=== PATIENT | female | born 1960 | race Caucasian/White ===

== ENCOUNTER 2016-08-04 14:28 | Emergency (ER) | payer OTHER ==
[~2016-08-04] VITALS: Ht 162.6 cm; Wt 87.5 kg
[~2016-08-04 14:28] MED LIST: ALLEGRA-D 12 HO1 TER PO; CELEBREX200 MG PO; CRESTOR10 MG PO; HYDROXYZINE HYD25 MG PO; LEVOTHYROXINE0.05 MG PO; PANTOPRAZOLE40 M1 PO
[2016-08-04] MEDS ORDERED: SINGULAIR 10 MG10 MG PO (14:54)
[2016-08-04] MEDS ORDERED: AMLO5TAB PO (14:54)
[2016-08-04] MEDS ORDERED: QVAR8.7 G1 IH (14:55)
--- NOTE | 2016-08-04 14:58 | Emergency Room Report ---
History of Present Illness Time Seen by [id number] Presenting Problem in Triage Pt arrived:Walked Presenting Problem:PT HAS BEEN HAVING TROUBLE BREATHING AND DIZZY SPELLS, PT FEELS LIKE HER HEART BEATS FAST SOMETIMES. PT ALMOST PASSED OUT AT HOME TODAY. 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 N Clinical Suspician of Infection? N Mental Status: 1 - Regular (Normal Baseline) Sepsis Risk:Low Sepsis Risk Have you (or family members/close friends) recently traveled outside the [place]? N If Yes, where/when: Have you had exposure to infectious disease within the past month? N TB? Other? Specify: Source patient, RN notes reviewed, family, RN/MD Exam Limitations no limitations Comment 56yo white female presents today with x2 days of dizziness, yesterday being the worst with movement and sitting up. She reported going to PCP around 07/19/16 for elevated BP, which was normal at that time. PCP instructed to continue BP medications. Pt checks BP at home, and had stopped taking lisinopril and amlodipine since yesterday due to SBP being in the low 90s. Pt denies CP, n/v, visual changes, h/a, muscle weakness. She does report some palpitations when rising, or moving quickly. Has not taken any other OTC medications at this time. ALLERGIES Coded Allergies: cephalexin (From [facility]) (Mild, NA-NAUSEA 08/04/16) Home Medications Reported Medications Pantoprazole Sodium (Pantoprazole) 40 MG PO DAILY Celecoxib (Celebrex) 200 MG PO DAILY Levothyroxine Sodium (Levothyroxine) 0.05 MG PO DAILY HYDROXYZINE PAMOATE (Hydroxyzine Pamoate) 25 MG PO TID PRN Rosuvastatin Calcium (Crestor) 10 MG PO QHS FEXOFENADINE/PSEUDOEPHEDRINE (Tressa-D 12 Hour Tablet) 1 TAB PO BID Amlodipine Besylate (Amlodipine) 5 MG PO DAILY Montelukast Sodium (Singulair 10MG) 10 MG PO DAILY Beclomethasone Dipropionate (QVAR) 8.7 GM IH History Medical History General CAD? No Angina: No AL: No Hypertension? Yes Hyperlipidemia? Yes CHF? No DVT? No PE? No COPD? No Asthma? No Anemia? No GERD? No Gastric ulcers? No GI Bleed? No Hernia? No Thyroid Problems? Yes Hypothyroidism? No CVA? No Seizures? No Diabetes? No Renal Insuffiency? No End Stage Renal Disease? No UTI? Yes Stones? Yes BPH? No GB Disease: No Nephritic Syndrome? No Asplenia? No Hepatitis? No Sickle Cell Disease? No Arthritis? Yes Migraines? No Cataracts? No Glaucoma? No MRSA? No HIV? No TB? No Anxiety? No Depression? No Cancer? No More? 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 Family History Family Hx Diabetes No CAD No Hypertension Yes Hyperlipidemia Yes Cancer Yes TB No Social History Smoking Hx Smoker: Never Smoker Tobacco: No Alcohol Alcohol: No Review of Systems All Other Systems Reviewed and Negative Constitutional denies chills, denies fever, denies malaise, denies weakness Respiratory no symptoms reported Cardiovascular palpitations Gastrointestinal no symptoms reported Musculoskeletal no symptoms reported Skin no symptoms reported Physical Exam Vital Signs Vital Signs Date Time Temp Pulse Resp B/P Pulse O2 O2 Flow FiO2 Ox Delivery Rate 08/04 1756 98.2 54 18 119/79 98 08/04 1751 98.2 54 18 119/79 98 08/04 1711 98.1 59 18 140/78 94 / 1636 97.8 73 18 122/74 98 08/04 1553 98.1 50 18 117/77 100 08/04 1510 49 18 121/71 98 08/04 1442 97.8 54 18 155/80 98 General Appearance normal appearance, WD/WN, no apparent distress Eye Exam - bilateral eye normal exam, bilateral eye PERRL, bilateral eye EOMI Ear, Nose, Throat left TM cloudy with effusion, no infection. Neck normal inspection, non-tender, supple, full range of motion Respiratory Status Yes: trachea midline, chest symmetrical, non tender chest. No: respiratory distress. Lung Sounds bilateral: normal breath sounds, lungs clear. 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 No Comment Patient's blood pressure appears to be borderline low, at this time. Upon further questioning the patient has advised that she has noticed that she has been feeling dizzy and weak for the past few weeks while taking her blood pressure medications. She has keep taking her blood pressure medications today, resulting in her still being symptomatic today. Advised patient to hold off the Norvasc, continue Zestril, monitor her blood pressure and follow-up with her PCP at her earliest convenience. She will document her blood pressure readings at home as well. Results/Orders Laboratory Tests 08/04/16 1506: Sodium 140, Potassium 3.9, Chloride 108 H, Carbon Dioxide 26, BUN 16, Creatinine 0.6, Estimated Creat Clear 141, Estimated GFR (MDRD) 103, Glucose 92, Calcium 8.6, Total Bilirubin 1.3 H, AST 16, ALT 27, Alkaline Phosphatase 65, Creatine Kinase 26, CK-MB (CK-2) Rel Index 2.3, CK and CKMB Interp 0.6, Troponin I < 0.02, Total Protein 6.7, Albumin 3.2 L, Globulin 3.5 H, Albumin/Globulin Ratio 0.9 L, WBC 9.2, RBC 5.25, Hgb 14.5, Hct 43.5, MCV 82.8, RDW 14.6, Plt Count 289, MPV 8.6, Gran % 63.3, Gran # 5.8, Lymphocytes % 24.0, Monocytes % 8.4 , Eosinophils % 3.3, Basophils % 1.0, Lymphocytes # 2.2, Monocytes # 0.8, Eosinophils # 0.3, Basophils # 0.1, PUBS MCHC 33.3, MCH 27.6 Current Medication Orders Sig/Marlys Start time Last Medication Dose Route Stop Time Status Admin Aspirin 324 MG ONCE ONE 08/04 1530 DC 08/04 PO 08/04 1531 1529 Sodium Chloride 10 ML PRN PRN 08/04 1530 DCD IV 08/05 1524 Aspirin 0 .STK-MED ONE 08/04 1527 DC .ROUTE Orders Procedure Date/time Status ELECTROCARDIOGRAM REQUEST 08/04 1525 Active IV SALINE LOCK 08/04 1525 Active CBC WITH AUTO DIFF 08/04 1525 Complete CARDIAC ENZYMES 08/04 1525 Complete CHEM 12 PROFILE 08/04 1525 Complete 12 LEAD EKG-MARIA LUISA (INITIAL) 08/04 1443 Active 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 of ischemic chgs, no ectopy, normal QRS, normal IL, no EKG for comparison, non-spec. ST/Twave chgs, ST elevation, ST depression, LBBB, RBBB, ectopy, abnormal Q waves Departure Departure Time of Disposition 173 Disposition DC Home or Self Care(routine) Clinical Impression Primary Impression: Hypotension Qualifiers: Hypotension type: unspecified hypotension type Qualified Code: I95.9 - Hypotension, unspecified Condition STABLE Patient Instructions DI for Orthostatic Hypotension Additional Instructions Stop taking Amlodipine daily due to low Blood pressure. Continue to monitor BP levels at home 2x/day, if Blood pressure remains low, stop lisinopril. Follow-up with PCP. May take decongestant for effusion in left ear OTC (i.e. pseudophed). If symptoms and dizziness persists, come back to ER or follow-up with PCP. Discharge Counseling Counseled pt/family regarding diagnosis, medications/RX, home care, follow up needs Comment Stop taking Amlodipine daily due to low Blood pressure. Continue to monitor BP levels at home 2x/day, if Blood pressure remains low, stop lisinopril. Follow-up with PCP. May take decongestant for effusion in left ear OTC (i.e. pseudophed). If symptoms and dizziness persists, come back to ER or follow-up with PCP. ED Critical Care Critical Care No at [id number]
[2016-08-04 15:33] LABS: LYMPH # 2.2 K/mm3 (0.7-4.5)
[2016-08-04 15:41] LABS: HEMOGLOBIN 14.5 g/dL (12.2-16.2)
[2016-08-04 16:01] LABS: BUN 16 mg/dL (7-18); GFR (ESTIMATED) 103 ML/MIN (59-)
[2016-08-04 17:56] VITALS: BP 119/79
--- NOTE | 2016-08-04 21:00 | RADIOLOGY REPORT PS360 ---
CHEST(2 VIEWS-NOT PORTABLE) ORDERING PHYSICIAN : Alirio Rose MD PATIENT AGE: 56 years GENDER: Female INDICATION: chest pain 3 days chest pain PROCEDURE: PA and lateral chest 11/28/2010 FINDINGS .. Stable chest with no new findings. No significant change since 2010. Lungs well expanded and clear with no active disease evident. No pneumothorax. No pleural effusion. Heart normal size. Normal pulmonary vascularity. Hilar and mediastinal structures appear satisfactory. Chest wall unremarkable. T-spine with slight progressive degenerative disc changes T9/10 ----IMPRESSION No active disease in the chest... . Stable chest . Mild degenerative changes T-spine
== END 2016-08-04 17:57 | disposition home or self-care (01) ==
LOC: ER 14:28
PROVIDERS: Emergency Medicine
DX: I95.9 Hypotension, unspecified (principal); R42 Dizziness and giddiness